=== PATIENT | female | born 2005 | race Caucasian/White ===

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

== ENCOUNTER 2023-01-12 13:51 | Emergency (ER) | payer SELFPAY ==
[2023-01-12] MEDS ORDERED: Dicyclomine 20 MG TAB ONE (16:22)
[2023-01-12] MEDS ORDERED: Acetaminophen 500 MG TAB ONE (16:22)
[2023-01-12] MEDS ORDERED: Ondansetron ODT 4 MG TAB ONE (16:23)
== END 2023-01-12 17:12 | disposition home or self-care (01) ==
LOC: CSHERS 13:51
DX: R19.7 Diarrhea, unspecified (principal); R11.2 Nausea with vomiting, unspecified
CPT/HCPCS: 99283; Q0162